=== PATIENT | female | born 1965 | race Native Hawaiian/Other Pacific Islander ===

== ENCOUNTER 2018-09-09 10:57 | Outpatient (CLI) | payer BC ==
[2018-09-09] MEDS ORDERED: VENLAFAXINE75 M2 PO ×2 (12:08)
[2018-09-09] MEDS ORDERED: LOVA20TA PO ×2 (12:18)
[2018-09-09] MEDS ORDERED: EUTHYROX88 MCG PO ×2 (12:20)
[2018-09-09] MEDS ORDERED: TIZANIDINE HYDRO4 MG PO ×2 (12:22)
[2018-09-09] MEDS ORDERED: QUET25TA2 PO ×2 (12:23)
[2018-09-09] MEDS ORDERED: TOPAMAX100 MG PO ×2 (12:24)
[2018-09-09] MEDS ORDERED: FURO40TA93 PO ×2 (12:25)
[2018-09-09] MEDS ORDERED: CLON1TAB18 PO ×2 (12:26)
[2018-09-09] MEDS ORDERED: DIVA250T PO ×2 (12:28)
== END 2018-09-09 11:04 | disposition short-term general hospital (02) ==
LOC: AMB 10:57
DX: R06.09 Other forms of dyspnea (principal); R41.82 Altered mental status, unspecified; R53.83 Other fatigue
CPT/HCPCS: A0425; A0427

== ENCOUNTER 2018-09-09 11:06 | Inpatient (IN) | payer BC ==
[~2018-09-09] VITALS: Ht 154.9 cm; Wt 124.5 kg
[2018-09-09] VITALS (15 sets, daily range): BP systolic 100–138; BP diastolic 51–109; TEMP 97.7–97.8; Ht 154.9 cm; Wt 124.5 kg
[2018-09-09 11:41] LABS: PLATELET COUNT 353 K/uL (152-353)
[2018-09-09 12:01] LABS: POTASSIUM 3.6 mmol/L (3.6-5.2); SODIUM 143 mmol/L (136-145)
[2018-09-09] MEDS ORDERED: VENLAFAXINE75 M2 PO ×2 (12:08)
[2018-09-09] MEDS ORDERED: LOVA20TA PO ×2 (12:18)
[2018-09-09] MEDS ORDERED: EUTHYROX88 MCG PO ×2 (12:20)
[2018-09-09] MEDS ORDERED: TIZANIDINE HYDRO4 MG PO ×2 (12:22)
[2018-09-09] MEDS ORDERED: QUET25TA2 PO ×2 (12:23)
[2018-09-09] MEDS ORDERED: TOPAMAX100 MG PO ×2 (12:24)
[2018-09-09] MEDS ORDERED: FURO40TA93 PO ×2 (12:25)
[2018-09-09] MEDS ORDERED: CLON1TAB18 PO ×2 (12:26)
[2018-09-09] MEDS ORDERED: DIVA250T PO ×2 (12:28)
--- NOTE | 2018-09-09 17:45 | NUR ---
PT TO ICU VIA WC FROM ER. PT ASSISTED TO ICU BED 3, PT A& O X4. SL ANXIOUS. IV SL LOCK INTACT R AC.EUGENE TO BSD WITH CL YELLOW URINE.
--- NOTE | 2018-09-09 18:02 | NUR ---
PT ANXIOUS, MEDICATED WITH ATIVAN 1MG SIVP X 1.
--- NOTE | 2018-09-09 18:53 | NUR ---
ORDERS CLARIFIED WITH DR VERÓNICA YORK. NEW ORDERS.
--- NOTE | 2018-09-09 19:51 | NUR ---
PT MEDICATED WITH NORCO 10/325 MG PO FOR R LEG PAIN.
--- NOTE | 2018-09-09 20:56 | NUR ---
PT SITTING UP ON SIDE OF BED, APPEARS ANXIOUS AND IS SLIGHTLY RESTLESS OFF AND ON, VERY TALKATIVE WITH VEHICLE RETURN ASSOCIATE, REASSURED PT DUE TO HER TALKING ABOUT SOME FAMILY PROBLEMS WITH MONEY AND HER , VEHICLE RETURN ASSOCIATE ALLOWED PT TO EXPRESS FEELINGS, IV INTACT, 17F EUGENE PATENT DRAINING TO BEDSIDE, RESP RATE NONLABORED, O2 AT 2LPM VIA NC, COUGH NOTED AT TIMES, VITALS BEING MONITORED, WILL MONITOR CLOSELY, RAILS UP, BED IN LOW POSITION.
--- NOTE | 2018-09-09 22:00 | NUR ---
PT AWAKE SITTING UP ON SIDE OF BED TALKING WITH HER DAUGHTERS WHO ARE AT BEDSIDE, NO DISTRESS NOTED, WILL MONITOR CLOSELY.
--- NOTE | 2018-09-09 22:15 | NUR ---
DR. YORK NOW AT BEDSIDE SEEING PT.
[2018-09-10] VITALS (24 sets, daily range): BP systolic 102–141; BP diastolic 44–94; TEMP 97.6–98.5
--- NOTE | 2018-09-10 00:15 | NUR ---
17F EUGENE CATH REMOVED AT THIS TIME, PT TOLERATED WITH NO PROBLEMS, PT ON BSC TO CLEAN PRIVATE AREAS, 20G IV INTACT TO R AC WITH NS INFUSING AT 100ML/HR, O2 IN USE VIA NC, VITALS STABLE, PT TALKATIVE WITH BOLT SAWYER, WILL MONITOR CLOSELY.
--- NOTE | 2018-09-10 00:50 | NUR ---
PT SITTING IN HIGH SANDHU'S POSITION IN BED MESSING WITH HER CELL PHONE, APPEARS LESS ANXIOUS AND APPEARS TO BE CALMING DOWN. RESP RATE 18-20 WITH NO ACUTE DISTRESS NOTED, WEIGHT REDUCTION SPECIALIST IN USE WITH TACHYCARDIA NOTED AT 112, VITALS BEING MONITORED Q 1 HOURS AND ARE STABLE, WILL MONITOR CLOSELY, RAILS UP X3, BED IN LOW POSITION, ENCOURAGED TO CALL NEEDED.
--- NOTE | 2018-09-10 01:45 | NUR ---
PT ANXIOUS AND ALITTLE RESTLESS, NO ACUTE DISTRESS OR SOB NOTED, O2 AT 2LPM VIA NC, IV INTACT, O2 IN USE, VITALS BEING MONITOR, BURGLAR ALARM INSPECTOR IN USE WITH RATE IN 90s. GAVE ATIVAN 2MG SLOW IVP PRN FOR ANXIETY, REASSURED PT, WILL MONITOR CLOSELY, RAILS UP, BED IN LOW POSITION.
--- NOTE | 2018-09-10 02:42 | NUR ---
PT GOT UP TO BSC TO URINATE, NO PROBLEMS NOTED SLIGHT WEAKNESS, PT NOW BACK IN BED WITH NO ACUTE DISTRESS NOTED, STATES SHE DOES NOT GET SOB WITH ACTIVITY, ENCOURAGED TO CALL NEEDED, RAILS UP, BED IN LOW POSITION, WILL MONITOR CLOSELY.
--- NOTE | 2018-09-10 03:37 | NUR ---
PT AWAKE TALKING WITH NITRO WORKER AND WATCHING TV OFF AND ON, NO S/S OF PAIN OR DISTRESS NOTED, RESP RATE IN LOW TO MID 20s(DECREASES TO 18-20 WHEN PT RELAXES AND IS NOT TALKING WITH STAFF), SKIN WARM AND DRY, IV INTACT TO R AC WITH NS INFUSING AT 100ML/HR, O2 AT 2LPM VIA NC WITH SAT OF 95%, RESEARCH INTERN IN USE WITH RATE IN 90s, DENIES ANY PROBLEMS AT THIS TIME, RAILS UP, BED IN LOW POSITION.
[2018-09-10 04:25] LABS: PLATELET COUNT 303 K/uL (152-353)
[2018-09-10 04:43] LABS: POTASSIUM 3.8 mmol/L (3.6-5.2)
--- NOTE | 2018-09-10 06:08 | NUR ---
PT C/O CHRONIC PAIN TO HER BACK AND LEGS THAT IS CONSTANT, DESCRIBES PAIN "DULL, ACHING, SHARP" PAIN THAT SHE RATES A "10" ON SCALE, GAVE NORCO 10/325MG PO PRN FOR PAIN, WILL MONITOR CLOSELY, RAILS UP, BED IN LOW POSITION.
--- NOTE | 2018-09-10 06:30 | NUR ---
PT AWAKE AND ORIENTED SITTING CALMLY IN BED WITH HOB IN HIGH SANDHU'S POSITION PLAYING ON HER CELL PHONE, CURRENT BAG OF NS FINISHED INFUSING, 20G IV INTACT TO R AC NOW A SALINE LOCK(ORDER TO D/C IV FLUID AFTER THE CURRENT BAG) WITH NO PROBLEMS NOTED TO SITE, RESP RATE 20-22 NONLABORED, O2 AT 2LPM VIA NC WITH SAT OF 98%, FIELD ARTILLERY FIRE CONTROL MAN IN USE, VITALS BEING MONITORED, NO S/S OF ACUTE DISTRESS NOTED, STATES PRN PAIN MED HAS NOT REALLY KICKED IN YET TO HELP WITH HER LEG AND BACK PAIN, WILL MONITOR FOR PAIN RELIEF, RAILS UP, BED IN LOW POSITION, ENCOURAGED TO CALL NEEDED. NOTE PT HAS NOT SLEPT ANY DURING THE NIGHT.
--- NOTE | 2018-09-10 07:15 | NUR ---
PT RESTING IN SF WITH EYES CLOSED. COLOR PINK,SKIN W/D.RESP EVEN & UNLABORED AT REST. O2 SAT 96% ON 2L O2/NC.
--- NOTE | 2018-09-10 09:00 | NUR ---
PT SITTING UP FEEDING SELF BREAKFAST.
--- NOTE | 2018-09-10 10:40 | NUR ---
DR RICHARD REED IN TO SEE PT.
--- NOTE | 2018-09-10 12:01 | NUR ---
PT RESTING WITH EYES CLOSED.HOB UP SF. O2 SATS 96% ON 2LO2/NC.
--- NOTE | 2018-09-10 12:15 | NUR ---
LAB IN FOR BLOOD DRAW. PT UP TO BSC TO VOID, INCREASED SOB WITH MINIMAL EFFORT. MEDICATED FOR R LEG PAIN WITH NORCO 10/325 MG PO .
--- NOTE | 2018-09-10 13:27 | NUR ---
Patient was admitted with a PE Pulmonary Embolism and is on a Regular diet and IBW 105 +/-10% at 61" and weight at 273 = 160% of IBW and Kcal for [id number], pro 48 to 62.4 and fluids for weight 3722 x 30 and x 25= 3102 ml per day. nkfa and nkda per chart. BMI at 51.5 and is higher than the highest stage of obesity. Recommend: 1- NCS High Fiber or 1800 Calorie High Fiber and to work with PT to try and decrease movement to use Kcal
--- NOTE | 2018-09-10 14:39 | NUR ---
PT'S SISTER & DAUGHTER IN HELPING PT WITH BATH & PERSONAL CARE.
--- NOTE | 2018-09-10 16:12 | NUR ---
PT ANXIOUS & LOUD AFTER FAMILY IN TO VISIT, XANAX 0.5MG GIVEN PO.
--- NOTE | 2018-09-10 17:23 | NUR ---
PT ON TELEPHONE & WATCHING TV.
--- NOTE | 2018-09-10 18:42 | NUR ---
PT RESTING WITH EYES CLOSED.RESP EVEN & UNLABORED AT THIS TIME.
--- NOTE | 2018-09-10 19:55 | NUR ---
PT RESTING QUIETLY IN BED WITH EYES CLOSED IN POSITION OF COMFORT WITH HOB ELEVATED, NO S/S OF PAIN OR DISTRESS NOTED, RESP RATE NONLABORED, O2 AT 2LPM VIA NC WITH SAT OF 96%, 20G IV LOCK INTACT TO R AC WITH NO PROBLEMS NOTED TO SITE, BS+, LUNGS DIMINISHED TO AUSCULTATION, RADIAL AND PEDAL PULSES INTACT/EQUAL, SOME PITTING EDEMA STILL NOTED TO BILATERAL FEET/ANKLES, SKIN WARM AND DRY. PT DOES AROUSE TO BANANA RIPENING ROOM SUPERVISOR TOUCHING HER AND IS ORIENTED, DENIES ANY NEEDS OR PROBLEMS AT THIS TIME, WILL MONITOR CLOSELY, RAILS UP, BED IN LOW POSITION.
--- NOTE | 2018-09-10 20:54 | NUR ---
GAVE PT NORCO 10/325MG PO PRN PER PT REQUEST FOR PAIN TO LEGS, SEE NOTE IN EMAR DURING MEDICATION ADMINISTRATION.
--- NOTE | 2018-09-10 21:10 | NUR ---
PT GOT UP TO USE BSC WITH NO ACUTE DISTRESS NOTED, NOW BACK IN BED, WILL MONITOR CLOSELY, PT TALKATIVE WITH DRUG AND ALCOHOL TREATMENT SPECIALIST.
--- NOTE | 2018-09-10 22:08 | NUR ---
PT AWAKE SITTING UP RIGHT IN BED ON HER CELL PHONE AND TALKATIVE WITH MANAGER SOCIAL MEDIA OFF AND ON, NO S/S OF PAIN OR DISTRESS NOTED, RESP RATE NONLABORED, O2 AT 2LPM VIA NC, 22G IV LOCK INTACT TO R AC WITH NO PROBLEMS NOTED TO SITE, VITALS BEING MONITORED, PRODUCTION CREW SUPERVISOR IN USE WITH RATE IN 80s-90s, DENIES ANY NEEDS AT THIS TIME, RAILS UP, BED IN LOW POSITION.
--- NOTE | 2018-09-10 22:55 | NUR ---
AWAKE TALKING ON CELL PHONE WITH NO DISTRESS NOTED, WILL MONITOR CLOSELY.
[2018-09-11] VITALS (14 sets, daily range): BP systolic 95–153; BP diastolic 40–77; TEMP 97.5–98.1
--- NOTE | 2018-09-11 01:14 | NUR ---
GAVE MORPHINE 2MG IVP X 1 DOSE PER NEW ORDER FOR PAIN TO R UPPER CALF AND TO POSTERIOR AREA ABOVE R KNEE THAT PT STATES IS "SHARP" AND THAT IT STARTS AT CALF AND MOVES TO JUST ABOVE BACK OF KNEE(DOES NOT HURT BEHIND THE KNEE PER PT), RATES PAIN A "10" ON SCALE. FLUSHED IV BEFORE AND AFTER MED WITH 5ML NS. WILL MONITOR CLOSELY, RAILS UP, BED IN LOW POSITION.
--- NOTE | 2018-09-11 01:55 | NUR ---
STATES MORPHINE HELPED WITH R LEG PAIN DECREASED IT "ALITTLE", NO REACTIONS NOTED TO MEDICATION.
--- NOTE | 2018-09-11 02:39 | NUR ---
PT REMAINS AWAKE AND HAS NOT SLEPT ALL NIGHT, APPEARS SLIGHTLY ANXIOUS, GAVE XANAX 0.5MG PO PRN TO HELP PT RELAX AND REST, DENIES ANY OTHER PROBLEMS, IV LOCK INTACT, RESP RATE NONLABORED, VITALS STABLE, O2 AT 2LPM VIA NC WITH SAT OF 96-99%, WILL MONITOR CLOSELY, RAILS UP, BED IN LOW POSITION, ENCOURAGED TO CALL NEEDED.
--- NOTE | 2018-09-11 02:45 | NUR ---
PT GOT UP TO AND FROM [facility] WITH NO DISTRESS NOTED, STATES HER R POSTERIOR LEG STILL HURTS SOME AND FEELS "STIFF" SHE GOT UP TO [facility], NOTE WHOLE R LEG APPEARS TO BE EQUAL IN SIZE TO L LEG WITH NO REDNESS OR SWELLING NOTED TO EITHER LEG, RESP RATE 20 NORMAL AND NONLABORED, O2 AT 2LPM VIA NC WITH SAT OF 97-98%, 20G IV LOCK INTACT TO R AC WITH NO PROBLEMS NOTED TO SITE, ENGRAVER HAND HARD METALS IN USE WITH SR NOTED, VITALS STABLE AND BEING MONITORED Q 1 HOUR, PT NOW BACK IN BED IN POSITION OF COMFORT WITH HOB ELEVATED WATCHING TV, DENIES ANY NEEDS, WILL MONITOR CLOSELY, RAILS UP, BED IN LOW POSITION.
--- NOTE | 2018-09-11 03:12 | NUR ---
PT RESTING QUIETLY IN BED WITH EYES CLOSED FOR THE FIRST TIME TONIGHT, NO S/S OF PAIN OR DISTRESS NOTED, WILL MONITOR CLOSELY, RAILS UP, BED IN LOW POSITION.
--- NOTE | 2018-09-11 04:07 | NUR ---
CONTINUES TO REST QUIETLY IN BED IN POSITION OF COMFORT WITH EYES CLOSED AND HOB ELEVATED, NO S/S OF PAIN OR DISTRESS NOTED, IV LOCK INTACT, O2 IN USE, VITALS BEING MONITORED, SPAGHETTI MACHINE OPERATOR IN USE WITH RATE IN THE 60s, WILL MONITOR CLOSELY, RAILS UP, BED IN LOW POSITION.
[2018-09-11 05:37] LABS: PLATELET COUNT 300 K/uL (152-353)
[2018-09-11 05:47] LABS: POTASSIUM 3.7 mmol/L (3.6-5.2)
--- NOTE | 2018-09-11 06:20 | NUR ---
AWAKE WATCHING TV WITH NO DISTRESS NOTED, VITALS BEING MONITORED, PERFORMANCE TEST ARCHITECT IN USE, IV LOCK INTACT, O2 AT 2LPM VIA NC, RESP RATE NONLABORED, WILL MONITOR CLOSELY, RAILS UP, BED IN LOW POSITION.
--- NOTE | 2018-09-11 07:45 | NUR ---
RECIEVED REPORT PT C/O PAINS RIGHT LEG FROM BELOW TO JUST ABOVE KNEE SHARP PAINS, GERRI HERE CALLED TO DR REED, WILL COME TO SEE PATIENT BEFORE GIVING MEDS. PATIENT ASSISTED TO CHAIR WITH LEGS ELEVATED.
--- NOTE | 2018-09-11 08:02 | NUR ---
DR REED HERE CHECKED PATIENT RECIEVED NEW ORDERS. PATIENT CONTINUES UP IN CHAIR. C/O PAINS RIGHT KNEE NO REDNESS NOTED. LEGS UP ON PILLOWS.
--- NOTE | 2018-09-11 10:05 | NUR ---
PATIENT RESTING IN BED RECIEVED AM MEDS. IV MEDS ANTIBOTICS INFUSING WITHOUT DIFFICULTY. RECIEVED LOVENOX ORDERED. BOTED BEEDING AT PREVIOUS SITES ABD COVERED WITH BANDAID. C/O PAINS RIGHT KNEE AREA DESCRIBED SPASM RECIEVED SOMA ORDERED.
--- NOTE | 2018-09-11 11:24 | NUR ---
PATIENT C/O PAIN AT IV SITE, CHECKED NO BLOOD RETURN, ATTEMPT TO FLUSH A LITTLE HARD TO PUSH. WILL START ANOTHER. STARTED IV LEFT AC 22 GA X1 STICK WITH GOOD BLOOD RETURN RESUME IV FLUIDS. REMOVED IV RIGHT AC CATH INTACT NOTED OLD BRUISING AND BLOOD AT SITE. CATH INTACT NO REDNESS NO SWELLING.
--- NOTE | 2018-09-11 14:52 | NUR ---
1345 PT TRANSFERRED TO ROOM 106 VIA BED. PT AWAKE AND ALERT. NO ACUTE DISTRESS NOTED. WILL CON'T TO MONIOTR. PT'S FAMILY AT BS
--- NOTE | 2018-09-11 14:55 | NUR ---
PATIENT RESTING IN BED UP TO BEDSIDE COMMODE VOID. PATIENT C/O PAINS RIGHT KNEE. HYDROCODONE 1 TAB GIVEN PO BY RITIKA JACKSON RN.
[2018-09-12 04:00] VITALS: BP 126/67; TEMP 98.3
[2018-09-12 05:46] LABS: PLATELET COUNT 300 K/uL (152-353)
[2018-09-12 06:01] LABS: POTASSIUM 3.6 mmol/L (3.6-5.2)
[2018-09-12 08:00] VITALS: BP 109/59; TEMP 97.7
[2018-09-12 12:00] VITALS: BP 106/50; TEMP 97.7
[2018-09-12 16:00] VITALS: BP 108/63; TEMP 97.8
--- NOTE | 2018-09-12 16:00 | NUR ---
PATIENT HAD BM TODAY AND SHOWER. NO ACUTE DISTRESS NOTED. CALL LIGHT IS WITHIN REACH.
--- NOTE | 2018-09-12 19:29 | NUR ---
PATIENT HAD PRN DOSES OF PAIN MED THIS SHIFT, BUT STILL VOICES COMPLIANT OF PAIN. SHE STATES THAT SHE HAS A HIGH TOLERANCE FOR PAIN MEDS. PHYSICIAN WAS NOTIFIED.
[2018-09-12 20:00] VITALS: BP 112/65; TEMP 98
[2018-09-12 23:58] VITALS: BP 88/57; TEMP 97.6
--- NOTE | 2018-09-13 00:14 | NUR ---
09/12/18 2330 PT AMBULATED OUTSIDE PT SAID SHE CANNOT HARDLY REST.CC
--- NOTE | 2018-09-13 02:20 | NUR ---
09/13/18 0215 RESTARTED IV SITE TO LEFT UPPER FOREARM 22 GAVANESSA PT C/O OF SOME ANXIETY TOLD HER I WILL CHECK AND SEE IF IT IS TIME FOR MEDICATION.CC
--- NOTE | 2018-09-13 02:27 | NUR ---
09/13/18 0215 V/S OBTAINED 108/50 HR 68.CC
[2018-09-13 04:00] VITALS: BP 102/45; TEMP 98.2
--- NOTE | 2018-09-13 04:47 | NUR ---
09/13/18 0445 CALLED TO ROOM PT STATES SHE IS BLEEDING WHEN SHE PEED.PT SAID SHE HAD HER LAST MONTHLY PERIOD IN MARCH.TOLD HER THAT SHE MAY BE HAVING A PERIOD THAT SHE CAN STILL HAVE BREAK THROUGH BLEEDING IT HASNOT BEEN THAT LONG SINCE HER LAST PERIOD.BUT IT ALSO COULD BE RELATED TO BLOOD THINNER THAT IS SHE ON.I TOLD HER I WILL REPORT TO THIS AM.PT VOIDED 100ML WHICH IS BLOODY.PT IS ASKING FOR SOMETHING FOR ANXIETY.CC
[2018-09-13 05:36] LABS: PLATELET COUNT 303 K/uL (152-353)
[2018-09-13 06:19] LABS: POTASSIUM 2.9 mmol/L (3.6-5.2)
[2018-09-13 08:00] VITALS: BP 112/49; TEMP 97.4
[2018-09-13 08:37] LABS: PARTIAL THROMBOPLASTIN TIME 23.7 SECONDS (24.5-33.6)
[2018-09-13 12:00] VITALS: BP 102/45; TEMP 97.9
[2018-09-13 16:00] VITALS: BP 103/53; TEMP 98
[2018-09-13 20:00] VITALS: BP 118/40; TEMP 98.2
[2018-09-13 23:40] VITALS: BP 108/59; TEMP 97.8
[2018-09-14 04:00] VITALS: BP 97/40; TEMP 97.9
[2018-09-14 05:49] LABS: PLATELET COUNT 291 K/uL (152-353)
[2018-09-14 06:02] LABS: POTASSIUM 3.6 mmol/L (3.6-5.2)
[2018-09-14 08:00] VITALS: BP 93/63; TEMP 97.4
[2018-09-14 09:38] LABS: POTASSIUM 3.5 mmol/L (3.6-5.2)
[2018-09-14 10:13] LABS: PLATELET COUNT 319 K/uL (152-353)
[2018-09-14 12:00] VITALS: BP 92/31; TEMP 97.4
[2018-09-14] MEDS ORDERED: APIX1TAB PO ×2 (13:31)
--- NOTE | 2018-09-14 15:45 | NUR ---
PT IV D/C'D WITHOUT ADVERSE S/S PT GIVEN EDUCATION, PT DISCHARGED VIA WHEELCHAIR TO HOME
== END 2018-09-14 15:45 | disposition home or self-care (01) | DRG 175 ==
LOC: ED 11:06 → ICU 16:40 → MED/SURG 09-11 13:45
PROVIDERS: Family Medicine; Internal Medicine; ADMIT Emergency Medicine
DX: I26.99 Other pulmonary embolism without acute cor pulmonale (principal); J18.8 Other pneumonia, unspecified organism; J44.1 Chronic obstructive pulmonary disease with (acute) exacerbation; G40.802 Other epilepsy, not intractable, without status epilepticus; F31.89 Other bipolar disorder; J44.0 Chronic obstructive pulmonary disease with (acute) lower respiratory infection; E03.8 Other specified hypothyroidism; F17.210 Nicotine dependence, cigarettes, uncomplicated; F41.8 Other specified anxiety disorders; M25.562 Pain in left knee; M25.561 Pain in right knee; N20.0 Calculus of kidney; E87.6 Hypokalemia
CPT/HCPCS: 36415; 80048; 80053; 80307; 81000; 81241; 82550; 82553; 83605; 83735; 83880; 84443; 84484; 85027; 85300; 85302; 85305; 85379; 85610; 85613; 85730; 87040; 93005; 94664; 94760; 96374; 96375; 99285; J0456; J0696; J1200; J1650; J1940; J2060; J2270; J2920; J2930; J3490